=== PATIENT | female | born 1970 | race Caucasian/White ===

== ENCOUNTER 2017-11-10 19:06 | Emergency (ER) | payer SELFPAY ==
[2017-11-10 21:00] VITALS: BP 136/103
--- NOTE | 2017-11-11 04:22 | ER ---
DATE SEEN: 11/10/2017 CHIEF COMPLAINT: The new medications. HISTORY OF PRESENT ILLNESS: This is a 47-year-old female, who has ADHD and anxiety. She has been taking Wellbutrin, Adderall, and alprazolam. She ran out recently and was in the clinic today, but could not get a refill. She is experiencing anxiety problems with fatigue, tremors, she is unable to concentrate, has a stressful job. REVIEW OF SYSTEMS: No suicidal ideation. No fever. No chest pain or shortness of breath tonight. ALLERGIES: No known allergies. PAST MEDICAL HISTORY: Generalized anxiety disorder. PHYSICAL EXAMINATION: VITAL SIGNS: Blood pressure and vital signs are normal. MENTAL STATUS: She is alert, normal affect. Good eye contact. Appears calm, but sometimes is tearful during the interview. IMPRESSION: Anxiety disorder. PLAN: I gave her Xanax 0.5 mg p.o. b.i.d. p.r.n. only eight tablets and advised her to follow up with PCP next week at the [facility]. TIME SEEN: 2000 hours. /[id number] 2022 [id number] JENNIFER/MT
== END 2017-11-10 20:25 | disposition home or self-care (01) ==
LOC: FB.ED 19:06
DX: F41.9 Anxiety disorder, unspecified (principal)
CPT/HCPCS: 99281

== ENCOUNTER 2020-01-11 13:51 | Emergency (ER) | payer MEDICAID ==
--- NOTE | 2020-01-11 14:08 | EDM.PDOCBH ---
ED HPI GENERAL MEDICAL PROBLEM - General Chief Complaint: Drug or Alcohol Abuse Stated Complaint: BODYS SHAKING Time Seen by Provider: 01/11/20 14:15 Source of Information: Reports: Patient History Limitations: Reports: No Limitations - History of Present Illness INITIAL COMMENTS - FREE TEXT/NARRATIVE: pt brought in by she drinks alcohol on daily basis , yesterday had 10 beers and the day before today has not had any drink and developed tremors and weakness no vomiting , no abdominal pain has history of chronic alcohol use , abuse has been seen in the past with delirium Requesting to go to detoxification center and rehab Onset: Today Onset Date: 01/11/20 Onset Time: 09:00 Duration: Getting Worse Location: Reports: Generalized (tremors) Severity: Moderate Improves with: Reports: None Worsens with: Reports: None Context: Reports: Activity Associated Symptoms: Reports: Loss of Appetite, Malaise, Weakness. Denies: Confusion, Fever/Chills, Headaches, Nausea/Vomiting - Related Data Allergies Allergy/AdvReac Type Severity Reaction Status Date / Time NSAIDS (Non-Steroidal Allergy Severe Bleeding Verified 01/11/20 14:31 Anti-Inflamma latex Allergy Swelling Verified 01/11/20 14:31 nitrofurantoin Allergy Cannot Verified 01/11/20 14:31 [From Macrobid] Remember Home Meds: Home Meds Levothyroxine Sodium [Synthroid] 125 mcg PO DAILY 06/03/13 [History] buPROPion HCL [Bupropion HCl] 300 mg PO BID 06/03/13 [History] ZOLMitriptan [Zomig] 2.5 mg PO ASDIRECTED PRN 12/29/13 [History] Ondansetron [Zofran] 4 mg PO ASDIRECTED PRN 01/09/14 [History] Past Medical History Other Gastrointestinal History: appendectomy; cholecystectomy, stomach surgery Psychiatric History: Reports: Anxiety, Depression, Panic Attack Endocrine/Metabolic History: Reports: Hypothyroidism - Past Surgical History GI Surgical History: Reports: Appendectomy, Cholecystectomy Musculoskeletal Surgical History: Reports: Knee Replacement Social & Family History - Family History Family Medical History: Noncontributory - Caffeine Use Caffeine Use: Reports: Coffee, Soda, Tea ED ROS GENERAL - Review of Systems Review Of Systems: Comprehensive ROS is negative, except as noted in HPI. Constitutional: Reports: Weakness, Fatigue HEENT: Reports: No Symptoms Respiratory: Reports: No Symptoms Cardiovascular: Reports: No Symptoms Endocrine: Reports: Fatigue GI/Abdominal: Reports: Anorexia, Decreased Appetite : Reports: No Symptoms Musculoskeletal: Reports: No Symptoms Skin: Reports: No Symptoms Neurological: Reports: Tremors, Gait Disturbance Psychiatric: Reports: Depression Hematologic/Lymphatic: Reports: No Symptoms Immunologic: Reports: No Symptoms ED EXAM, BEHAVIORAL HEALTH - Physical Exam Exam: See Below Exam Limited By: No Limitations General Appearance: Alert, WD/WN, No Apparent Distress Eye Exam: Bilateral Eye: EOMI Ears: Normal External Exam Nose: Normal Inspection Throat/Mouth: Normal Inspection Head: Atraumatic Neck: Supple, Non-Tender Respiratory/Chest: No Respiratory Distress, Lungs Clear Cardiovascular: Normal Peripheral Pulses, Regular Rate, Rhythm GI/Abdominal: Soft, Non-Tender Extremities: Normal Inspection, Normal Range of Motion Neurological: Alert, Oriented x 3, Abnormal Gait, Ataxia, Tremor Psychiatric: Alert, Depressed Mood, Flat Affect, Poor Eye Contact, Other ( cooperative) Skin Exam: Warm, Dry COURSE, BEHAVIORAL HEALTH COMP - Course Vital Signs: Last Vital Signs Temp 36.6 C 01/11/20 13:55 Pulse 122 H 01/11/20 17:13 Resp 18 01/11/20 17:13 BP 152/118 H 01/11/20 17:13 Pulse Ox 97 01/11/20 17:13 Orders, Labs, Meds: Laboratory Tests 01/11/20 01/11/20 01/11/20 Range/Units 14:19 14:19 15:25 WBC 8.8 (4.5-12.0) X10-3/uL RBC 4.92 (3.23-5.20) x10(6)uL Hgb 12.3 (11.5-15.5) g/dL Hct 37.8 (30.0-51.3) % MCV 76.8 L (80-96) fL MCH 25.1 L (27.7-33.6) pg MCHC 32.6 (32.2-35.4) g/dL RDW 19.3 H (11.5-15.5) % Plt Count 485 H (125-369) X10(3)uL MPV 6.2 L (7.4-10.4) fL Add Manual Diff Yes Neutrophils % (Manual) 86 H (46-82) % Lymphocytes % (Manual) 10 L (13-37) % Monocytes % (Manual) 4 (4-12) % Anisocytosis Many H Microcytosis Few Sodium 136 (135-145) mmol/L Potassium 4.5 (3.5-5.3) mmol/L Chloride 96 L (100-110) mmol/L Carbon Dioxide 22 (21-32) mmol/L BUN 5 L (7-18) mg/dL Creatinine 0.8 (0.55-1.02) mg/dL Est Cr Clr Drug Dosing TNP Estimated GFR (MDRD) > 60 (>60) BUN/Creatinine Ratio 6.3 L (9-20) Glucose 120 H (80-116) mg/dL Calcium 9.3 (8.6-10.2) mg/dL Total Bilirubin 1.0 (0.1-1.3) mg/dL AST 99 H (5-25) IU/L ALT 73 H (12-36) U/L Alkaline Phosphatase 210 H (56-112) IU/L Total Protein 8.5 H (6.0-8.0) g/dL Albumin 4.5 (3.5-5.2) g/dL Globulin 4.0 g/dL Albumin/Globulin Ratio 1.1 Urine Opiates Screen Negative (NEGATIVE) Ur Oxycodone Screen Negative (NEGATIVE) Ur Propoxyphene Screen Negative (NEGATIVE) Ur Barbituates Screen Negative (NEGATIVE) Ur Tricyclics Screen Negative (NEGATIVE) Ur Phencyclidine Scrn Negative (NEGATIVE) Ur Amphetamine Screen Negative (NEGATIVE) Urine MDMA Screen Negative (NEGATIVE) U Benzodiazepines Scrn Negative (NEGATIVE) U Cocaine Metab Screen Negative (NEGATIVE) U Marijuana (THC) Screen Negative (NEGATIVE) Ethyl Alcohol (<0.03) % 01/11/20 Range/Units 15:50 WBC (4.5-12.0) X10-3/uL RBC (3.23-5.20) x10(6)uL Hgb (11.5-15.5) g/dL Hct (30.0-51.3) % MCV (80-96) fL MCH (27.7-33.6) pg MCHC (32.2-35.4) g/dL RDW (11.5-15.5) % Plt Count (125-369) X10(3)uL MPV (7.4-10.4) fL Add Manual Diff Neutrophils % (Manual) (46-82) % Lymphocytes % (Manual) (13-37) % Monocytes % (Manual) (4-12) % Anisocytosis Microcytosis Sodium (135-145) mmol/L Potassium (3.5-5.3) mmol/L Chloride (100-110) mmol/L Carbon Dioxide (21-32) mmol/L BUN (7-18) mg/dL Creatinine (0.55-1.02) mg/dL Est Cr Clr Drug Dosing Estimated GFR (MDRD) (>60) BUN/Creatinine Ratio (9-20) Glucose (80-116) mg/dL Calcium (8.6-10.2) mg/dL Total Bilirubin (0.1-1.3) mg/dL AST (5-25) IU/L ALT (12-36) U/L Alkaline Phosphatase (56-112) IU/L Total Protein (6.0-8.0) g/dL Albumin (3.5-5.2) g/dL Globulin g/dL Albumin/Globulin Ratio Urine Opiates Screen (NEGATIVE) Ur Oxycodone Screen (NEGATIVE) Ur Propoxyphene Screen (NEGATIVE) Ur Barbituates Screen (NEGATIVE) Ur Tricyclics Screen (NEGATIVE) Ur Phencyclidine Scrn (NEGATIVE) Ur Amphetamine Screen (NEGATIVE) Urine MDMA Screen (NEGATIVE) U Benzodiazepines Scrn (NEGATIVE) U Cocaine Metab Screen (NEGATIVE) U Marijuana (THC) Screen (NEGATIVE) Ethyl Alcohol < 0.03 (<0.03) % Medications Discontinued Medications Generic Name Dose Route Start Last Admin Trade Name Jtq PRN Reason Stop Dose Admin Sodium Chloride 1,000 mls @ 999 mls/hr 01/11/20 14:15 01/11/20 15:36 Normal Saline IV 999 mls/hr .BOLUS SILVANA Administration Lorazepam 0.5 mg 01/11/20 14:15 01/11/20 14:23 Ativan IVPUSH 01/11/20 14:16 0.5 mg ONETIME ONE Administration Lorazepam 1 mg 01/11/20 17:24 01/11/20 17:42 Ativan IVPUSH 01/11/20 17:25 1 mg ONETIME ONE Administration Propranolol HCl 60 mg 01/11/20 17:27 01/11/20 17:42 Inderal La PO 01/11/20 17:28 60 mg ONETIME ONE Administration Sodium Chloride 10 ml 01/11/20 14:50 01/11/20 14:15 Saline Flush FLUSH 10 ml ASDIRECTED PRN Administration IV Use Re-Assessment/Re-Exam: BP noted to be elevated may be due to tremors and being anxious pt given propranolol to aid with tremors and BP Re-Assessment/Re-Exam Time: 17:20 (pt states she is feeling more stable, noted to still have tremors , will given another dose of ativan before transfer) Medical Clearance: 01/11/20 17:32 pt is medically cleared for admission to detoxification center Discharge vs Psych Eval/Treatment:: 01/11/20 17:32 has been accepted at detoxification center Departure - Departure Time of Disposition: 18:00 Disposition: DC/Tfer to Other 70 Clinical Impression: Acute alcohol intoxication, Alcohol withdrawal delirium, acute, hypoactive - Discharge Information Referrals: PCP,None [Primary Care Provider] - Forms: ED Department Discharge Sepsis Event Note - Focused Exam Vital Signs: Vital Signs Pulse Resp BP Pulse Ox 01/11/20 17:13 122 H 18 152/118 H 97 Date Exam was Performed: 01/12/20 Time Exam was Performed: 02:30
[2020-01-11] MEDS ORDERED: LORazepam 2 MG/ML SDV IVPUSH ONE ×2 (14:15→17:24)
[2020-01-11] MEDS: Sodium Chloride 0.9% 1,000 ML IV SCH ×2 (14:22→15:36)
[2020-01-11] MEDS ORDERED: Sodium Chloride 0.9% 10 ML Syringe FLUSH PRN (14:50)
[2020-01-11 17:14] VITALS: BP 152/118; PULSE 122
[2020-01-11] MEDS ORDERED: Propranolol 60 MG Cap.ER PO ONE (17:27)
== END 2020-01-11 18:01 | disposition other institution (70) ==
LOC: FB.ED 13:51
DX: F10.221 Alcohol dependence with intoxication delirium (principal); F41.9 Anxiety disorder, unspecified; F32.9 Major depressive disorder, single episode, unspecified; E03.9 Hypothyroidism, unspecified; Z88.8 Allergy status to other drugs, medicaments and biological substances; Z79.899 Other long term (current) drug therapy; Z91.040 Latex allergy status
CPT/HCPCS: 36415; 80053; 80305; 80307; 85025; 96361; 96374; 96376; 99284; A9270; J2060; J7030

== ENCOUNTER 2021-08-21 19:59 | Emergency (ER) | payer MEDICAID ==
[2021-08-21 20:29] VITALS: BP 100/70; PULSE 69
--- NOTE | 2021-08-21 20:39 | EDM.PDOC ---
ED HPI GENERAL MEDICAL PROBLEM - General Chief Complaint: Upper Extremity Injury/Pain Stated Complaint: TRIP ON SALVADOR TRACY Time Seen by Provider: 08/21/21 20:30 Source of Information: Reports: Patient History Limitations: Reports: No Limitations - History of Present Illness INITIAL COMMENTS - FREE TEXT/NARRATIVE: 51-year-old female who was walking in her home and she tripped on a rock and fell forward catching herself with her outstretched right arm but she nodded her head and did not hit her shoulders or upper body on the ground but had pain in her left clavicle area after this occurred. This occurred approximately 7 PM tonight. She reports that there is pain in her clavicle area on the left side that is an 8/10 with movement but a 4/10 with rest. It is sharp and throbbing. She has placed an ice pack on the area and that has decreased her pain somewhat. She is having no difficulty breathing. There is no nausea and she has had no vomiting. No abdominal pain. No neck or back pain. She is here in the emergency department with her who brought her in by private vehicle. There are no other associated signs or symptoms. There are no other modifying factors. Onset: Today (7 PM.) Duration: Constant Location: Reports: Other (Left clavicle area.) Quality: Reports: Sharp, Throbbing Severity: Moderate (2 severe) Improves with: Reports: Rest Worsens with: Reports: Other (Palpation), Movement Context: Reports: Trauma Associated Symptoms: Reports: No Other Symptoms (Except as above.) Treatments CRM CONSULTANT: Reports: Cold Therapy Left Shoulder Pain Score (Numeric/FACES): 8 - Related Data Allergies Allergy/AdvReac Type Severity Reaction Status Date / Time NSAIDS (Non-Steroidal Allergy Severe Bleeding Verified 01/11/20 14:31 Anti-Inflamma latex Allergy Swelling Verified 01/11/20 14:31 nitrofurantoin Allergy Cannot Verified 01/11/20 14:31 [From Macrobid] Remember Home Meds: Home Meds Levothyroxine Sodium [Synthroid] 112 mcg PO DAILY 06/03/13 [History] Acetaminophen/HYDROcodone [HYDROcodone-Acetaminophen 5-325 MG *] 1 tab PO Q6H PRN #10 each 08/21/21 [Rx] Venlafaxine [Effexor] 150 mg PO DAILY 08/21/21 [History] hydrOXYzine HCL [Atarax] 25 mg PO Q6HR PRN 08/21/21 [History] Past Medical History Psychiatric History: Reports: Anxiety, Depression, Panic Attack Endocrine/Metabolic History: Reports: Hypothyroidism - Past Surgical History GI Surgical History: Reports: Appendectomy, Bariatric Procedure (Gastric bypass), Cholecystectomy Female Surgical History: Reports: Hysterectomy Musculoskeletal Surgical History: Reports: Knee Replacement, ORIF (Right wrist and ankle) Social & Family History - Tobacco Use Tobacco Use Status *Q: Unknown Ever Used Tobacco (Nonsmoker.) - Caffeine Use Caffeine Use: Reports: Coffee, Soda, Tea - Alcohol Use Alcohol Use History: Yes Alcohol Use Comment: No current alcohol use. - Living Situation & Occupation Living situation: Reports: Occupation: Unemployed Review of Systems - Review of Systems Review Of Systems: See Below Constitutional: Denies: Diaphoresis, Fever Eyes: Denies: Blurred Vision, Pain Ears: Denies: Dizziness, Pain Nose: Denies: Congestion, Epistaxis Mouth/Throat: Denies: Pain, Throat Swelling Respiratory: Denies: Shortness of Breath, Cough Cardiovascular: Denies: Chest Pain, Lightheadedness GI/Abdominal: Denies: Abdominal Pain, Nausea, Vomiting Genitourinary: Denies: Dysuria Musculoskeletal: Reports: Other (Left clavicle pain.) Skin: Denies: Diaphoresis, Rash Neurological: Denies: Dizziness, Syncope Psychiatric: Denies: Anxiety ED EXAM, GENERAL - Physical Exam Exam: See Below Exam Limited By: No Limitations General Appearance: Alert, WD/WN, Moderate Distress Eye Exam: Bilateral Eye: EOMI, Normal Inspection, PERRL Ears: Normal External Exam, Hearing Grossly Normal Ear Exam: Bilateral Ear: Auricle Normal Nose: Normal Inspection, Normal Mucosa, No Blood Throat/Mouth: Normal Inspection, Normal Oropharynx, Normal Voice, No Airway Compromise Head: Atraumatic, Normocephalic Neck: Normal Inspection, Supple, Non-Tender, Full Range of Motion Respiratory/Chest: No Respiratory Distress, Lungs Clear, Normal Breath Sounds, No Accessory Muscle Use, Chest Non-Tender Cardiovascular: Normal Peripheral Pulses, Regular Rate, Rhythm Peripheral Pulses: 2+: Radial (L), Radial (R) GI/Abdominal: Normal Bowel Sounds, Soft, Non-Tender Back Exam: Normal Inspection Extremities: No Pedal Edema, Normal Capillary Refill, Other (Tender over the left clavicle with some swelling and deformity.) Neurological: Alert, Oriented, CN II-XII Intact, Normal Cognition, No Motor/Sensory Deficits Psychiatric: Normal Affect Skin Exam: Warm, Dry, Intact, Normal Color, No Rash Course - Vital Signs Last Recorded V/S: Last Vital Signs Temp 36.4 C 08/21/21 20:26 Pulse 69 08/21/21 20:26 Resp 16 08/21/21 20:26 BP 100/70 08/21/21 20:26 Pulse Ox 99 08/21/21 20:26 - Orders/Labs/Meds Orders: Active Orders 24 hr Category Date Time Status Clavicle Lt [CR] Stat Exams 08/21/21 20:55 Taken Meds: Medications Discontinued Medications Generic Name Dose Route Start Last Admin Trade Name Doimnic PRN Reason Stop Dose Admin Hydrocodone Bitart/Acetaminophen 1 tab 08/21/21 20:55 08/21/21 21:00 Acetaminophen/Hydrocodone 325-5 Mg Tab PO 08/21/21 20:56 1 tab ONETIME ONE Administration - Radiology Interpretation Free Text/Narrative:: X-ray of left clavicle shows a midshaft clavicle fracture per my read. - Re-Assessments/Exams Free Text/Narrative Re-Assessment/Exam: 08/21/21 21:23: The patient does have a left clavicle fracture. She was given hydrocodone 5/325 one tablet for pain. She will be placed in a sling to her left upper extremity urine and apply ice packs to the area intermittently for the next 2-3 days. She should keep her left shoulder elevated. She is to avoid strenuous use with the left arm and raising her left arm above her shoulder. She will need to follow-up with her primary provider as she may need orthopedic follow-up. I will give her a take home pack of hydrocodone 5/325 and will send her an additional prescription for small number of these medications. Precautions and reasons for return to the emergency department were discussed with the patient and her while the patient was in the emergency department and were detailed in the patient's discharge instructions. Departure - Departure Time of Disposition: 21:33 Disposition: Home, Self-Care 01 Condition: Good Clinical Impression: Fracture of clavicle Qualifiers: Encounter type: initial encounter Clavicle location: shaft Fracture type: closed Fracture alignment: nondisplaced Laterality: left Qualified Code(s): S42.025A - Nondisplaced fracture of shaft of left clavicle, initial encounter for closed fracture - Discharge Information Prescriptions: Acetaminophen/HYDROcodone [HYDROcodone-Acetaminophen 5-325 MG *] 1 tab PO Q6H PRN #10 each PRN Reason: Moderate to severe pain Instructions: Clavicle Fracture, [id number] Referrals: Cisco Hernandez MD [Primary Care Provider] - Forms: ED Department Discharge Additional Instructions: You have a midshaft fracture of her left clavicle. It is nondisplaced. It is somewhat angulated. Should wear the sling for comfort and support. Avoid any strenuous use with the left arm and raising her left arm above your shoulder until cleared by your primary provider. Apply ice packs intermittently to the left clavicle area for the next few days. Back to the emergency department for difficulty breathing, coughing up blood, severe weakness or any other concerning signs or symptoms. You should plan on following up with your primary provider for recheck next week. Sepsis Event Note (ED) - Evaluation Sepsis Screening Result: No Definite Risk - Focused Exam Vital Signs: Vital Signs Temp Pulse Resp BP Pulse Ox 08/21/21 20:26 36.4 C 69 16 100/70 99 - My Orders Last 24 Hours: My Active Orders 08/21/21 20:55 Clavicle Lt [CR] Stat - Assessment/Plan Last 24 Hours: My Active Orders 08/21/21 20:55 Clavicle Lt [CR] Stat
[2021-08-21] MEDS ORDERED: Acetaminophen/HYDROcodone 325-5 MG Tab PO ONE ×2 (20:55→21:30)
== END 2021-08-21 22:13 | disposition home or self-care (01) ==
LOC: FB.ED 19:59
DX: S42.025A Nondisplaced fracture of shaft of left clavicle, initial encounter for closed fracture (principal); E03.9 Hypothyroidism, unspecified; Z91.040 Latex allergy status; Z88.1 Allergy status to other antibiotic agents; Z88.8 Allergy status to other drugs, medicaments and biological substances; Z79.899 Other long term (current) drug therapy; W18.39XA Other fall on same level, initial encounter; Y92.009 Unspecified place in unspecified non-institutional (private) residence as the place of occurrence of the external cause
CPT/HCPCS: 73000; 99283; A9270